=== PATIENT | male | born 1970 | race Caucasian/White ===

== ENCOUNTER 2016-09-25 10:24 | Inpatient (IN) | payer OTHER, MEDICAID ==
[~2016-09-25] VITALS: Ht 177.8 cm; Wt 88.7 kg
[~2016-09-25 10:24] MED LIST: AMOX-291 PO; BISA10SU20; BISM262T27 PO; DIAZ10TA; FAMO20TA7 PO; GABA300C10; HYDR-3138 PO; IBUP200C6; METR250T4 PO; METR500T; METR500T PO; OXYC-302 PO; OXYC5CAP4; PANT40TA3 PO; PARO10TA24 PO; RIVA15TA PO; SUCR1TAB26 PO; TETR500C3 PO; TRAM50TA2 PO; WARF10TA PO
[2016-09-25 11:47] LABS: HEMOGLOBIN 14.7 g/dL (13.7-18.0)
[2016-09-25] MEDS ORDERED: KETOROLAC 30 MG/1 ML ONE (11:51)
[2016-09-25] MEDS ORDERED: NITROGLYCERIN OINT 2%, 1GM TP ONE ×2 (11:52→12:00)
[2016-09-25 11:53] LABS: BLOOD UREA NITROGEN 20 mg/dL (7-18)
[2016-09-25 11:57] LABS: IS PT STATUS REG ER OR PRE ER? YES
[2016-09-25] MEDS ORDERED: KETOROLAC 30 MG/1 ML IM ONE (12:00)
[2016-09-25] MEDS ORDERED: FENTANYL PF 100 MCG/2ML IV ONE (13:30)
[2016-09-25] MEDS ORDERED: FENTANYL PF 100 MCG/2ML ONE (13:49)
[2016-09-25] MEDS ORDERED: SODIUM CHLORIDE FLUSH 10ML SYR IVF ONE (14:00)
[2016-09-25 14:30] VITALS: BP 112/74
[2016-09-25 16:40] VITALS: BP 110/72
[2016-09-25] MEDS ORDERED: ENALAPRILAT 1.25 MG/ML, 2ML IVPush PRN (17:00)
[2016-09-25] MEDS ORDERED: HYDROcodone/APAP 5/325 TABLET PO PRN (17:00)
[2016-09-25] MEDS ORDERED: POLYETHYLENE GLYCOL 17 GM PACKET PO PRN (17:00)
[2016-09-25] MEDS ORDERED: ACETAMINOPHEN 325 MG TABLET PO PRN (17:00)
[2016-09-25] MEDS ORDERED: LABETALOL 5MG/ML, 20ML IV PRN (17:00)
[2016-09-25] MEDS ORDERED: ONDANSETRON 2MG/ML, 2ML IVP PRN (17:00)
[2016-09-25] MEDS ORDERED: BISACODYL 10 MG SUPP PR PRN (17:00)
[2016-09-25] MEDS: NICOTINE 14MG/24 HR PATCH.TD24 TD SCH ×2 (17:00→19:47)
[2016-09-25] MEDS: HYDROmorphone 2 MG/ML, 1ML IVPush PRN ×2 (17:27→21:07)
[2016-09-25] MEDS: ENOXAPARIN 40 MG/0.4 ML SQ SCH (17:28)
[2016-09-25] MEDS ORDERED: NITROGLYCERIN 0.4 MG/SPRAY SL PRN (17:30)
[2016-09-25] MEDS ORDERED: NITROGLYCERIN 0.4 MG BOTTLE (25 TABS) SL PRN (17:30)
[2016-09-25 19:00] VITALS: BP 90/51
[2016-09-26 02:38] VITALS: BP 101/63
[2016-09-26 03:16] VITALS: BP 131/88
[2016-09-26 05:09] LABS: HEMOGLOBIN 13.8 g/dL (13.7-18.0)
[2016-09-26 05:21] LABS: ASPARTATE AMINO TRANSFERASE 18 U/L (15-37); BLOOD UREA NITROGEN 26 mg/dL (7-18)
[2016-09-26 08:46] VITALS: BP 91/63
[2016-09-26] MEDS: HYDROmorphone 2 MG/ML, 1ML IVPush PRN ×2 (10:00→13:25)
[2016-09-26 12:29] VITALS: BP 91/55
[2016-09-26 16:03] LABS: IS PT STATUS REG ER OR PRE ER? NO
[2016-09-26] MEDS: ENOXAPARIN 40 MG/0.4 ML SQ SCH (18:04)
== END 2016-09-26 18:52 | disposition home or self-care (01) | DRG 281 ==
LOC: ED 13:05 → EDIP 13:06 → ED 13:22 → 5SO 14:25
PROVIDERS: ADMIT Internal Medicine; ATTEND Internal Medicine
DX: I21.4 Non-ST elevation (NSTEMI) myocardial infarction (principal); D68.51 Activated protein C resistance; D68.59 Other primary thrombophilia; F17.200 Nicotine dependence, unspecified, uncomplicated; F31.9 Bipolar disorder, unspecified; I10 Essential (primary) hypertension; I73.9 Peripheral vascular disease, unspecified; K44.9 Diaphragmatic hernia without obstruction or gangrene; N31.9 Neuromuscular dysfunction of bladder, unspecified; Z86.19 Personal history of other infectious and parasitic diseases; Z86.711 Personal history of pulmonary embolism; Z86.718 Personal history of other venous thrombosis and embolism; Z89.511 Acquired absence of right leg below knee; Z90.49 Acquired absence of other specified parts of digestive tract; Z90.89 Acquired absence of other organs; Z88.8 Allergy status to other drugs, medicaments and biological substances; Z88.5 Allergy status to narcotic agent; Z88.0 Allergy status to penicillin; Z91.013 Allergy to seafood; Z82.49 Family history of ischemic heart disease and other diseases of the circulatory system; Z84.89 Family history of other specified conditions; Z83.3 Family history of diabetes mellitus
CPT/HCPCS: 36415; 71010; 80048; 80053; 80061; 82040; 83880; 84443; 84484; 85025; 85379; 93005; 93306; 96372; 96374; J1170; J1650; J1885; J3010

== ENCOUNTER 2016-09-30 10:14 | Emergency (ER) | payer MEDICARE, MEDICAID ==
[~2016-09-30] VITALS: Ht 177.8 cm; Wt 92.5 kg
[2016-09-30] MEDS ORDERED: KETOROLAC 30 MG/1 ML IM ONE (11:00)
[2016-09-30] MEDS ORDERED: KETOROLAC 30 MG/1 ML ONE (11:03)
[2016-09-30 11:07] VITALS: BP 120/86
[2016-09-30 11:07] LABS: HEMOGLOBIN 15.2 g/dL (13.7-18.0)
[2016-09-30 11:20] LABS: ASPARTATE AMINO TRANSFERASE 17 U/L (15-37); BLOOD UREA NITROGEN 21 mg/dL (7-18)
== END 2016-09-30 12:06 | disposition home or self-care (01) ==
LOC: ED 11:18
DX: R07.89 Other chest pain (principal); Z88.0 Allergy status to penicillin; Z88.5 Allergy status to narcotic agent; Z88.6 Allergy status to analgesic agent; Z88.8 Allergy status to other drugs, medicaments and biological substances; Z86.718 Personal history of other venous thrombosis and embolism
CPT/HCPCS: 36415; 71010; 80053; 84484; 85025; 85379; 93005; 96372; 99285; J1885

== ENCOUNTER 2017-03-23 00:27 | Emergency (ER) | payer OTHER, MEDICAID ==
[~2017-03-23] VITALS: Ht 175.3 cm; Wt 88.8 kg
[~2017-03-23 00:27] MED LIST changes: -HYDR-3138 PO; +HYDR-3237 PO; +METR250T12 PO; -METR250T4 PO; +OXYC5CAP2; -OXYC5CAP4; -PARO10TA24 PO; +PARO10TA56 PO; -SUCR1TAB26 PO; +SUCR1TAB33 PO
[2017-03-23 00:39] VITALS: BP 136/89
[2017-03-23 01:38] LABS: HEMATOCRIT 40.8 % (39.2-51.8); WHITE BLOOD COUNT 6.2 x10^3/uL (3.4-10)
[2017-03-23 01:50] LABS: BLOOD UREA NITROGEN 24 mg/dL (7-18)
[2017-03-23] MEDS ORDERED: OLAN15TA3 PO (01:50)
[2017-03-23] MEDS ORDERED: ALBU1.25 NEB (01:50)
[2017-03-23] MEDS ORDERED: DIVA500T4 PO (01:50)
[2017-03-23] MEDS ORDERED: ZOLP12.52 PO (01:50)
[2017-03-23] MEDS ORDERED: NICO-487 TD (01:50)
[2017-03-23 02:08] LABS: IS PT STATUS REG ER OR PRE ER? YES
[2017-03-23] MEDS ORDERED: KETOROLAC 30 MG/1 ML IVPush ONE (02:30)
[2017-03-23] MEDS ORDERED: KETOROLAC 30 MG/1 ML ONE (02:30)
[2017-03-23] MEDS ORDERED: OMNIPAQUE 350 MG/ML, 100ML BOTTLE ONE (03:00)
== END 2017-03-23 03:58 | disposition home or self-care (01) ==
LOC: ED 02:18
DX: R07.89 Other chest pain (principal); I10 Essential (primary) hypertension; Z86.711 Personal history of pulmonary embolism
CPT/HCPCS: 36415; 71275; 80048; 82040; 84484; 85025; 93005; 96374; 99285; J1885; Q9967

== ENCOUNTER 2017-04-06 16:32 | Emergency (ER) | payer MEDICARE, MEDICAID ==
[~2017-04-06] VITALS: Ht 175.3 cm; Wt 92.4 kg
[~2017-04-06 16:32] MED LIST changes: +ALBU1.25 NEB; +DIVA500T4 PO; +NICO-487 TD; +OLAN15TA3 PO; +ZOLP12.52 PO
[2017-04-06 16:38] VITALS: BP 143/86
[2017-04-06] MEDS ORDERED: KETOROLAC 30 MG/1 ML ONE (16:52)
[2017-04-06] MEDS ORDERED: KETOROLAC 30 MG/1 ML IM ONE (17:00)
== END 2017-04-06 17:42 | disposition home or self-care (01) ==
LOC: ED 17:36
DX: S43.402A Unspecified sprain of left shoulder joint, initial encounter (principal); I10 Essential (primary) hypertension; F31.9 Bipolar disorder, unspecified; F19.10 Other psychoactive substance abuse, uncomplicated; W01.0XXA Fall on same level from slipping, tripping and stumbling without subsequent striking against object, initial encounter; Y93.89 Activity, other specified; Y92.89 Other specified places as the place of occurrence of the external cause; Y99.8 Other external cause status; Z86.718 Personal history of other venous thrombosis and embolism
CPT/HCPCS: 73030; 96372; 99284; J1885

== ENCOUNTER 2017-06-13 09:31 | Inpatient (IN) | payer OTHER, MEDICAID ==
[2017-06-11 12:40] VITALS: BP 146/93
[~2017-06-13] VITALS: Ht 175.3 cm; Wt 97.9 kg
[~2017-06-13 09:31] MED LIST changes: +BUPIVACAINE/PF 0.5% ONE; +FLUO20TA25 PO; +IBUP-1223 PO; +MECL25TA4 PO; +TRIA340. TD
[2017-06-13] MEDS ORDERED: LACTATED RINGERS 1,000 ML IV SCH (09:52)
[2017-06-13] MEDS ORDERED: FENTANYL PF 100 MCG/2ML ONE ×4 (09:55→13:19)
[2017-06-13] MEDS ORDERED: MIDAZOLAM 1 MG/ML, 2ML ONE (09:55)
[2017-06-13] MEDS ORDERED: ROCURONIUM 10 MG/ML,10ML ONE (09:58)
[2017-06-13] MEDS ORDERED: PROPOFOL 10 MG/ML, 20ML ONE (09:58)
[2017-06-13] MEDS ORDERED: NEOSTIGMINE 1 MG/ML, 10ML ONE (09:59)
[2017-06-13] MEDS ORDERED: CEFAZOLIN 1,000 MG ONE ×2 (10:03)
[2017-06-13] MEDS ORDERED: SODIUM CHLORIDE 0.9% PF 10ML ONE (10:03)
[2017-06-13] MEDS ORDERED: LIDOCAINE 1%, 2ML ONE (10:17)
[2017-06-13] MEDS ORDERED: SUCCINYLCHOLINE 20 MG/ML, 10ML ONE (10:51)
[2017-06-13] MEDS ORDERED: GLYCOPYRROLATE 0.2MG/1ML, 5ML ONE (11:06)
[2017-06-13] MEDS ORDERED: FENTANYL PF 100 MCG/2ML IV PRN (11:30)
[2017-06-13] MEDS ORDERED: hydrALAzine 20 MG/ML, 1ML IV PRN ×2 (11:30→13:00)
[2017-06-13] MEDS ORDERED: MEPERIDINE/PF 25MG/0.5ML IVPush PRN (11:30)
[2017-06-13] MEDS ORDERED: ONDANSETRON 2MG/ML, 2ML IVPush PRN ×2 (11:30→13:00)
[2017-06-13] MEDS ORDERED: LABETALOL 5MG/ML, 20ML IV PRN (11:30)
[2017-06-13] MEDS ORDERED: PROMETHAZINE 25 MG/ML, 1ML IV PRN (11:30)
[2017-06-13] MEDS ORDERED: ALBUTEROL SULFATE 2.5 MG/3 ML NPPB PRN ×2 (11:30→15:30)
[2017-06-13] MEDS ORDERED: OXYcodone 5 MG/5 ML ORAL.SOL UDC PO PRN (11:30)
[2017-06-13] MEDS ORDERED: ACETAMINOPHEN 325 MG TABLET PO PRN (11:30)
[2017-06-13] MEDS ORDERED: DIPHENHYDRAMINE 50 MG/ML, 1ML IV PRN (13:00)
[2017-06-13] MEDS ORDERED: PROMETHAZINE 12.5 MG SUPP PR PRN (13:00)
[2017-06-13] MEDS ORDERED: ENALAPRILAT 1.25 MG/ML, 2ML IV PRN (13:00)
[2017-06-13] MEDS ORDERED: PROMETHAZINE 25 MG/ML, 1ML IM PRN (13:00)
[2017-06-13] MEDS: HYDROcodone/APAP 7.5-325MG/15ML UDC PO PRN ×4 (13:40→22:08)
[2017-06-13] MEDS: HYDROmorphone 1 MG/ML, 1ML IV PRN ×4 (13:45→15:32)
[2017-06-13] MEDS ORDERED: KETOROLAC 30 MG/1 ML ONE (13:57)
[2017-06-13] MEDS ORDERED: HYDROcodone/APAP 7.5-325MG/15ML UDC ONE (13:57)
[2017-06-13] MEDS ORDERED: HYDROmorphone 2 MG/ML, 1ML ONE ×2 (13:57→15:28)
[2017-06-13] MEDS: KETOROLAC 30 MG/1 ML IV PRN ×2 (13:59→20:57)
[2017-06-13] MEDS ORDERED: PROMETHAZINE 25 MG/ML, 1ML ONE (14:00)
[2017-06-13] MEDS: LACTATED RINGERS 1,000 ML IV SCH ×2 (14:10→21:12)
[2017-06-13] MEDS ORDERED: TRIAMCINOLONE CRM 0.1%, 15GM TP PRN (15:30)
[2017-06-13 20:12] VITALS: BP 117/80
[2017-06-13] MEDS: FAMOTIDINE 20 MG/2 ML IV SCH (20:57)
[2017-06-13] MEDS: CEFAZOLIN PMX 2GM/50ML 50 ML IVPB SCH (21:11)
[2017-06-13] MEDS: DIVALPROEX 500 MG TAB.ER.24H PO SCH (21:12)
[2017-06-13] MEDS: LORazepam 2 MG/ML, 1ML IV PRN (23:51)
[2017-06-14 00:37] VITALS: BP 105/69
[2017-06-14] MEDS: HYDROcodone/APAP 7.5-325MG/15ML UDC PO PRN ×5 (02:49→21:07)
[2017-06-14] MEDS: CEFAZOLIN PMX 2GM/50ML 50 ML IVPB SCH (05:22)
[2017-06-14] MEDS: LACTATED RINGERS 1,000 ML IV SCH ×3 (05:22→20:44)
[2017-06-14 06:58] VITALS: BP 101/68
[2017-06-14] MEDS: LORazepam 2 MG/ML, 1ML IV PRN (07:34)
[2017-06-14] MEDS: FAMOTIDINE 20 MG/2 ML IV SCH ×2 (08:10→19:59)
[2017-06-14] MEDS: ENOXAPARIN 40 MG/0.4 ML SQ SCH (08:10)
[2017-06-14] MEDS ORDERED: KETOROLAC 30 MG/1 ML IM PRN (09:30)
[2017-06-14] MEDS: KETOROLAC 30 MG/1 ML IV PRN ×2 (10:19→20:00)
[2017-06-14 13:45] VITALS: BP 133/89
[2017-06-14] MEDS ORDERED: HYDROmorphone 2 MG/ML, 1ML ONE ×2 (14:46→23:55)
[2017-06-14 19:41] VITALS: BP 111/79
[2017-06-14] MEDS: DIVALPROEX 500 MG TAB.ER.24H PO SCH (21:07)
[2017-06-14] MEDS: HYDROmorphone 1 MG/ML, 1ML IV PRN (23:58)
[2017-06-15] MEDS: HYDROcodone/APAP 7.5-325MG/15ML UDC PO PRN ×3 (01:02→09:49)
[2017-06-15 04:41] VITALS: BP 128/71
[2017-06-15] MEDS: LACTATED RINGERS 1,000 ML IV SCH (04:44)
[2017-06-15 07:30] VITALS: BP 115/75
[2017-06-15] MEDS: KETOROLAC 30 MG/1 ML IV PRN (07:44)
[2017-06-15] MEDS: ENOXAPARIN 40 MG/0.4 ML SQ SCH (07:44)
[2017-06-15] MEDS: FAMOTIDINE 20 MG/2 ML IV SCH (07:44)
[2017-06-15 12:04] VITALS: BP 159/88
== END 2017-06-15 12:46 | disposition home or self-care (01) | DRG 328 ==
LOC: ORIP 09:31 → 4NOR 14:48
PROVIDERS: ADMIT Thoracic Surgery (Cardiothoracic Vascular Surgery); ATTEND Thoracic Surgery (Cardiothoracic Vascular Surgery)
PROC: 0DV44ZZ Restriction of Esophagogastric Junction, Percutaneous Endoscopic Approach (ICD-10-PCS; 2017-06-13)
PROC: 0BUT4JZ Supplement Diaphragm with Synthetic Substitute, Percutaneous Endoscopic Approach (ICD-10-PCS; principal; 2017-06-13 11:30)
DX: K44.9 Diaphragmatic hernia without obstruction or gangrene (principal); R13.10 Dysphagia, unspecified; G89.29 Other chronic pain; F17.210 Nicotine dependence, cigarettes, uncomplicated; F32.9 Major depressive disorder, single episode, unspecified; Z89.519 Acquired absence of unspecified leg below knee; Z86.718 Personal history of other venous thrombosis and embolism; Z86.711 Personal history of pulmonary embolism
CPT/HCPCS: J0690; J1170; J1650; J1885; J2250; J2405; J2550; J2704; J2710; J3010; J3490; J0330; J2060; J7120; S0028

== ENCOUNTER 2017-08-09 09:14 | Emergency (ER) | payer MEDICARE, MEDICAID ==
[~2017-08-09] VITALS: Ht 175.3 cm; Wt 97.7 kg
[~2017-08-09 09:14] MED LIST changes: -BUPIVACAINE/PF 0.5% ONE
[2017-08-09] MEDS ORDERED: SODIUM CHLORIDE 0.9% 1,000 ML IV ONE (10:52)
[2017-08-09] MEDS ORDERED: ONDANSETRON 2MG/ML, 2ML IVPush ONE (11:00)
[2017-08-09] MEDS ORDERED: SODIUM CHLORIDE 0.9% 1,000ML IVBOLUS ONE (11:00)
[2017-08-09] MEDS ORDERED: FAMOTIDINE 20 MG/2 ML IVP ONE (11:00)
[2017-08-09 11:18] LABS: BASOPHILS # (AUTO) 0.04 x10^3/uL (0-0.1); BASOPHILS % (AUTO) 1 % (0-1); EOSINOPHILS % (AUTO) 5 % (1-7); LYMPHOCYTES # (AUTO) 1.39 x10^3/uL (1-3.4); LYMPHOCYTES % (AUTO) 23 % (22-44); MD NO; MEAN CORPUSCULAR HEMOGLOBIN 31.7 pg (27.5-34.5); MEAN CORPUSCULAR HGB CONC 34.3 g/dL (33.2-36.2); MEAN CORPUSCULAR VOLUME 92.2 fL (81-97); MEAN PLATELET VOLUME 7.6 fL (7.4-10.4); MONOCYTES # (AUTO) 0.42 x10^3/uL (0.2-0.8); MONOCYTES % (AUTO) 7 % (2-9); NEUTROPHILS # (AUTO) 3.94 x10^3/uL (1.8-6.8); NEUTROPHILS % (AUTO) 65 % (42-75); PLATELET COUNT 333 x10^3/uL (130-400); RED BLOOD COUNT 4.51 x10^6/uL (4.38-5.82); RED CELL DISTRIBUTION WIDTH 14.5 % (9.4-14.8)
[2017-08-09] MEDS ORDERED: ONDANSETRON 2MG/ML, 2ML ONE (11:19)
[2017-08-09] MEDS ORDERED: HYDROmorphone 2 MG/ML, 1ML ONE ×2 (11:19→12:44)
[2017-08-09] MEDS ORDERED: FAMOTIDINE 20 MG/2 ML ONE (11:20)
[2017-08-09] MEDS: HYDROmorphone 1 MG/ML, 1ML IVPush PRN ×2 (11:24→12:21)
[2017-08-09 11:28] VITALS: BP 118/79
[2017-08-09 11:30] LABS: ALANINE AMINOTRANSFERASE 46 U/L (12-78); ALBUMIN 3.3 g/dL (3.4-5.0); ANION GAP 8 mmol/L (5-15); CALCIUM 8.3 mg/dL (8.5-10.1); CHLORIDE 110 mmol/L (98-107); CREATININE 0.83 mg/dL (0.7-1.3)
[2017-08-09 11:32] LABS: ALKALINE PHOSPHATASE 64 U/L (45-117); BILIRUBIN,TOTAL 0.3 mg/dL (0.2-1.0); TOTAL PROTEIN 7.4 g/dL (6.4-8.2)
[2017-08-09 11:49] LABS: MICROSCOPIC INDICATED
[2017-08-09 11:50] LABS: CULTURE INDICATED? YES
[2017-08-09] MEDS ORDERED: OMNIPAQUE 350 MG/ML, 100ML BOTTLE ONE (12:21)
[2017-08-09] MEDS ORDERED: CEFTRIAXONE PMX 1GM/50ML 50 ML ONE (12:44)
[2017-08-09] MEDS ORDERED: CEFTRIAXONE PMX 1GM/50ML 50 ML IV ONE (13:00)
== END 2017-08-09 12:57 | disposition home or self-care (01) ==
LOC: ED 12:12
DX: N39.0 Urinary tract infection, site not specified (principal); I10 Essential (primary) hypertension; Z86.711 Personal history of pulmonary embolism
CPT/HCPCS: 36415; 74177; 80053; 81001; 83690; 85025; 87077; 87086; 87186; 96361; 96374; 96375; 96376; 99285; G0260; J0696; J1170; J2405; J7030; Q9967; S0028

== ENCOUNTER 2017-12-19 07:36 | Day surgery (SDC) | payer MEDICARE, MEDICAID ==
[~2017-12-19] VITALS: Ht 170.2 cm; Wt 100.3 kg
[~2017-12-19 07:36] MED LIST changes: +ALBU8.5H8 INH; +ARIP10TA33 PO; +DIVA-68 PO; +LURA40TA PO; +MIRT15TA4 PO; +NITR50CA PO; +OLAN10TA9 PO; +OXYC-432 PO
[2017-12-19] MEDS ORDERED: LACTATED RINGERS 1,000 ML IV SCH (08:43)
[2017-12-19 08:44] VITALS: BP 128/87
[2017-12-19] MEDS ORDERED: FENTANYL PF 100 MCG/2ML ONE ×2 (10:29→13:20)
[2017-12-19] MEDS ORDERED: PROPOFOL 10 MG/ML, 20ML ONE (11:45)
[2017-12-19] MEDS ORDERED: ONDANSETRON 2MG/ML, 2ML ONE (11:45)
[2017-12-19] MEDS ORDERED: SUCCINYLCHOLINE 20 MG/ML, 10ML ONE (11:45)
[2017-12-19] MEDS ORDERED: MIDAZOLAM 1 MG/ML, 2ML ONE (11:53)
[2017-12-19] MEDS ORDERED: CIPROFLOXACIN 400MG/200ML PMX ONE (11:57)
[2017-12-19] MEDS ORDERED: OXYcodone 5 MG/5 ML ORAL.SOL UDC ONE ×2 (13:20→13:24)
[2017-12-19] MEDS ORDERED: ACETAMINOPHEN 650 MG/20.3 ML UDC ONE (13:20)
[2017-12-19] MEDS ORDERED: ACETAMINOPHEN 325 MG TABLET PO PRN (13:30)
[2017-12-19] MEDS ORDERED: OXYcodone 5 MG/5 ML ORAL.SOL UDC PO PRN (13:30)
[2017-12-19] MEDS ORDERED: FENTANYL PF 100 MCG/2ML IV PRN (13:30)
== END 2017-12-19 14:30 ==
LOC: OUT 07:36
PROVIDERS: ATTEND Urology
DX: N32.9 Bladder disorder, unspecified (principal); Z88.6 Allergy status to analgesic agent; Z88.5 Allergy status to narcotic agent; Z88.0 Allergy status to penicillin; Z88.8 Allergy status to other drugs, medicaments and biological substances
CPT/HCPCS: 52204; 88307; J0330; J0744; J2405; J2704; J3010; J2250

== ENCOUNTER → 2018-03-15 | Outpatient (CLI) | payer MEDICARE, MEDICAID ==
[~2018-03-15] MED LIST changes: +DIVA-61 PO; -DIVA-68 PO; +TETR-17 PO; -TETR500C3 PO
== END | disposition home or self-care (01) ==
LOC: CFH 09:02
PROVIDERS: ATTEND Physical Medicine & Rehabilitation Pain Medicine
DX: M51.24 Other intervertebral disc displacement, thoracic region (principal); M47.814 Spondylosis without myelopathy or radiculopathy, thoracic region; M47.816 Spondylosis without myelopathy or radiculopathy, lumbar region; Z86.718 Personal history of other venous thrombosis and embolism; F17.200 Nicotine dependence, unspecified, uncomplicated; Z85.830 Personal history of malignant neoplasm of bone
CPT/HCPCS: 72146; 72148

== ENCOUNTER 2018-04-21 11:27 | Observation (INO) | payer MEDICARE, MEDICAID ==
[~2018-04-21] VITALS: Ht 175.3 cm; Wt 93.7 kg
[2018-04-21] MEDS ORDERED: ASPIRIN 81 MG TABLET CHEW ONE (12:25)
[2018-04-21] MEDS ORDERED: MAALOX/HYOSCYAMINE/LIDOCAINE 45 ML BTL ONE (12:25)
[2018-04-21] MEDS ORDERED: ASPIRIN 81 MG TABLET CHEW PO ONE (12:30)
[2018-04-21] MEDS ORDERED: MAALOX/HYOSCYAMINE/LIDOCAINE 45 ML BTL PO ONE (12:30)
[2018-04-21] MEDS ORDERED: SODIUM CHLORIDE FLUSH 10ML SYR IVF ONE (12:30)
[2018-04-21 12:39] LABS: BASOPHILS # (AUTO) 0.06 x10^3/uL (0-0.1); BASOPHILS % (AUTO) 1 % (0-1); EOSINOPHILS # (AUTO) 0.13 x10^3/uL (0-0.4); EOSINOPHILS % (AUTO) 2 % (1-7); LYMPHOCYTES # (AUTO) 1.65 x10^3/uL (1-3.4); LYMPHOCYTES % (AUTO) 28 % (22-44); MD NO; MEAN CORPUSCULAR HEMOGLOBIN 31.2 pg (27.5-34.5); MEAN CORPUSCULAR HGB CONC 33.7 g/dL (33.2-36.2); MEAN CORPUSCULAR VOLUME 92.6 fL (81-97); MEAN PLATELET VOLUME 7.5 fL (7.4-10.4); MONOCYTES # (AUTO) 0.26 x10^3/uL (0.2-0.8); MONOCYTES % (AUTO) 4 % (2-9); NEUTROPHILS % (AUTO) 65 % (42-75); PLATELET COUNT 292 x10^3/uL (130-400); RED BLOOD COUNT 4.82 x10^6/uL (4.38-5.82); RED CELL DISTRIBUTION WIDTH 14.7 % (9.4-14.8)
[2018-04-21 12:51] LABS: ALANINE AMINOTRANSFERASE 32 U/L (12-78); ALBUMIN 3.6 g/dL (3.4-5.0); ANION GAP 9 mmol/L (5-15); CALCIUM 9.3 mg/dL (8.5-10.1); CHLORIDE 106 mmol/L (98-107); CREATININE 1.31 mg/dL (0.7-1.3)
[2018-04-21 12:55] LABS: ALKALINE PHOSPHATASE 78 U/L (45-117); BILIRUBIN,TOTAL 0.5 mg/dL (0.2-1.0); TOTAL PROTEIN 7.6 g/dL (6.4-8.2); TROPONIN I < 0.015 ng/mL (0.000-0.045)
[2018-04-21] MEDS ORDERED: NITROGLYCERIN SINGLE TAB 0.4 MG SL PRN (14:00)
[2018-04-21] MEDS ORDERED: ESCI10TA PO (14:00)
[2018-04-21] MEDS ORDERED: BUPR150T73 PO (14:00)
[2018-04-21] MEDS ORDERED: LURA120T PO (14:00)
[2018-04-21] MEDS ORDERED: TRAZ-137 PO (14:00)
[2018-04-21] MEDS ORDERED: FAMOTIDINE 20 MG/2 ML IVPush ONE (14:00)
[2018-04-21] MEDS ORDERED: ZOLP12.54 PO (14:00)
[2018-04-21] MEDS ORDERED: NITROGLYCERIN SINGLE TAB 0.4 MG SL ONE (14:10)
[2018-04-21] MEDS ORDERED: FAMOTIDINE 20 MG/2 ML ONE (14:11)
[2018-04-21] MEDS ORDERED: hydrALAzine 20 MG/ML, 1ML IVPush PRN (14:30)
[2018-04-21] MEDS ORDERED: HYDROmorphone 2 MG/ML, 1ML IVPush PRN (14:30)
[2018-04-21] MEDS: SODIUM CHLORIDE 0.9% 1,000 ML IV SCH ×2 (16:07→16:52)
[2018-04-21] MEDS: ENOXAPARIN 40 MG/0.4 ML SQ SCH (16:08)
[2018-04-21] MEDS: NICOTINE 21 MG/24 HR PATCH.TD24 TD SCH (16:08)
[2018-04-21 19:06] VITALS: BP 108/71
[2018-04-21] MEDS: PANTOPROZOLE 40MG TABLET PO SCH (20:40)
[2018-04-21] MEDS: ACETAMINOPHEN 325 MG TABLET PO PRN (21:48)
[2018-04-21 22:28] LABS: TROPONIN I < 0.015 ng/mL (0.000-0.045)
[2018-04-22 00:13] VITALS: BP 124/82
[2018-04-22] MEDS ORDERED: TRAZODONE 100MG TABLET PO ONE (00:30)
[2018-04-22 04:52] LABS: ANION GAP 8 mmol/L (5-15); CALCIUM 8.9 mg/dL (8.5-10.1); CHLORIDE 108 mmol/L (98-107)
[2018-04-22 04:59] LABS: CREATININE 1.29 mg/dL (0.7-1.3); TROPONIN I < 0.015 ng/mL (0.000-0.045)
[2018-04-22] MEDS: SODIUM CHLORIDE 0.9% 1,000 ML IV SCH (06:07)
[2018-04-22] MEDS ORDERED: REGADENOSON 0.4 MG/5 ML SYRINGE ONE (08:29)
[2018-04-22] MEDS: PANTOPROZOLE 40MG TABLET PO SCH (10:35)
[2018-04-22 11:00] VITALS: BP 124/83
[2018-04-22 14:10] VITALS: BP 122/78
[2018-04-22] MEDS: ENOXAPARIN 40 MG/0.4 ML SQ SCH ×2 (14:30→16:01)
[2018-04-22] MEDS ORDERED: OMNIPAQUE 350 MG/ML, 100ML BOTTLE ONE (15:42)
[2018-04-22] MEDS: NICOTINE 21 MG/24 HR PATCH.TD24 TD SCH (15:59)
[2018-04-22] MEDS: ACETAMINOPHEN 325 MG TABLET PO PRN (16:00)
[2018-04-22] MEDS ORDERED: OMEP-110 PO (16:07)
== END 2018-04-22 17:37 | disposition home or self-care (01) ==
LOC: ED 12:34 → INTOOBSV 13:58 → EDIP 13:58 → 5SO 15:11
PROVIDERS: ADMIT Internal Medicine; ATTEND Internal Medicine
DX: R07.89 Other chest pain (principal); N17.0 Acute kidney failure with tubular necrosis; N31.9 Neuromuscular dysfunction of bladder, unspecified; K44.9 Diaphragmatic hernia without obstruction or gangrene; K21.9 Gastro-esophageal reflux disease without esophagitis; D68.51 Activated protein C resistance; F17.200 Nicotine dependence, unspecified, uncomplicated; F31.9 Bipolar disorder, unspecified; I10 Essential (primary) hypertension; I70.201 Unspecified atherosclerosis of native arteries of extremities, right leg; Z86.19 Personal history of other infectious and parasitic diseases; Z86.711 Personal history of pulmonary embolism; Z86.718 Personal history of other venous thrombosis and embolism; Z89.511 Acquired absence of right leg below knee; Z90.49 Acquired absence of other specified parts of digestive tract; Z92.21 Personal history of antineoplastic chemotherapy
CPT/HCPCS: 36415; 71045; 71275; 78452; 80048; 80053; 83690; 84484; 85025; 85379; 93005; 93017; 96372; 96374; 99285; A9502; C9898; G0378; J1650; J2785; J7030; Q9967; S0028

== ENCOUNTER → 2018-08-08 | Outpatient (CLI) | payer MEDICARE, MEDICAID ==
[~2018-08-08] MED LIST changes: +BUPR150T73 PO; +ESCI10TA PO; +LURA120T PO; -METR250T12 PO; +METR250T18 PO; +OMEP-110 PO; +TRAZ-137 PO; +ZOLP12.54 PO
== END | disposition home or self-care (01) ==
LOC: CVU 08:39
PROVIDERS: ATTEND Surgery
DX: I73.9 Peripheral vascular disease, unspecified (principal); I65.23 Occlusion and stenosis of bilateral carotid arteries; F31.9 Bipolar disorder, unspecified; F17.200 Nicotine dependence, unspecified, uncomplicated; Z89.511 Acquired absence of right leg below knee; Z85.29 Personal history of malignant neoplasm of other respiratory and intrathoracic organs; Z88.0 Allergy status to penicillin; Z88.5 Allergy status to narcotic agent
CPT/HCPCS: 93880; 93925

== ENCOUNTER 2018-11-17 16:27 | Inpatient (IN) | payer MEDICARE, MEDICAID ==
[~2018-11-17] VITALS: Ht 170.2 cm; Wt 78.9 kg
[~2018-11-17 16:27] MED LIST changes: -BISM262T27 PO; +[UNRECOGNIZED DRUG - CODE] PO
--- NOTE | 2018-11-17 16:45 | NUR ---
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 PT HAS BLE IVC FILTERS IN PLACE, NOT ON BLOOD THINNERS. PA AT BEDSIDE
--- NOTE | 2018-11-17 17:30 | NUR ---
PT HAS BILAT LE DVT'S, INITIATE HEPARIN GTT
[2018-11-17 17:36] LABS: ANION GAP 7 mmol/L (5-15); BASOPHILS # (AUTO) 0.03 x10^3/uL (0-0.1); BASOPHILS % (AUTO) 0 % (0-1); CALCIUM 9.6 mg/dL (8.5-10.1); CHLORIDE 109 mmol/L (98-107); EOSINOPHILS % (AUTO) 1 % (1-7); LYMPHOCYTES # (AUTO) 2.43 x10^3/uL (1-3.4); LYMPHOCYTES % (AUTO) 25 % (22-44); MD NO; MEAN CORPUSCULAR HEMOGLOBIN 32.1 pg (27.5-34.5); MEAN CORPUSCULAR HGB CONC 33.1 g/dL (33.2-36.2); MEAN CORPUSCULAR VOLUME 97.1 fL (81-97); MEAN PLATELET VOLUME 8.3 fL (7.4-10.4); MONOCYTES # (AUTO) 0.39 x10^3/uL (0.2-0.8); MONOCYTES % (AUTO) 4 % (2-9); NEUTROPHILS # (AUTO) 6.71 x10^3/uL (1.8-6.8); NEUTROPHILS % (AUTO) 70 % (42-75); PLATELET COUNT 290 x10^3/uL (130-400); RED BLOOD COUNT 4.91 x10^6/uL (4.38-5.82)
[2018-11-17 17:41] LABS: ALANINE AMINOTRANSFERASE 36 U/L (12-78); ALKALINE PHOSPHATASE 69 U/L (45-117); BILIRUBIN,TOTAL 0.3 mg/dL (0.2-1.0); CREATININE 1.51 mg/dL (0.7-1.3)
[2018-11-17 17:53] LABS: INTERNATIONAL NORMALIZED RATIO 0.96 (0.93-1.1); PROTHROMBIN TIME 10.1 Seconds (9.6-11.5)
--- NOTE | 2018-11-17 17:56 | NUR ---
REQUESTED RECORDS FROM [facility]
[2018-11-17] MEDS ORDERED: HYDROcodone/APAP 5/325 TABLET ONE ×2 (18:16→20:34)
[2018-11-17] MEDS ORDERED: HYDROcodone/APAP 5/325 TABLET PO ONE ×2 (18:30→20:30)
[2018-11-17] MEDS ORDERED: HEPARIN 5,000 UNITS/ML, 1ML IV ONE (18:30)
[2018-11-17] MEDS ORDERED: HEPARIN 25,000 UNITS/500ML PMX 500 ML IV PRN (18:30)
--- NOTE | 2018-11-17 18:33 | NUR ---
ANTI TXA IN PROCESS, UNABLE TO ESTABLISH IV ACCESS AT THIS TIME AFTER 6 ATTEMPTS, MD AND PRINCIPAL MILITARY ANALYST NOTIFIED. PRINCIPAL MILITARY ANALYST TO OBTAIN RN TO DO IJ OR US IV
[2018-11-17] MEDS ORDERED: HEPARIN 5,000 UNITS/ML, 1ML ONE (18:54)
--- NOTE | 2018-11-17 18:58 | NUR ---
IV ACCESS ESTABLISHED, HEPARIN PROTOCOL INITIATED
[2018-11-17] MEDS ORDERED: HEPARIN 25,000 UNITS/500ML PMX 500 ML ONE (19:02)
--- NOTE | 2018-11-17 19:09 | NUR ---
CALLED PHARMACY TO VERIFY HEPARIN GTT WEIGHT RANGE, PT IS 82KG HOWEVER THEY HAVE HIM IN THE 61-70KG WEIGHT RANGE DUE TO HIS HEIGHT, PER PHARMACIST THIS IS OK. INITIATE HEPARIN GTT IN 61-70KG RANGE
--- NOTE | 2018-11-17 19:55 | NUR ---
PT STATES PAIN NOT CONTROLLED WITH NORCO, ADDITIONAL PAIN MEDS GIVEN PER MD
--- NOTE | 2018-11-17 21:05 | NUR ---
TRIED TO CALL REPORT, UC STATED SHE CANNOT LOCATE RN, RN WILL CALL BACK
--- NOTE | 2018-11-17 21:15 | NUR ---
REPORT TO HANK WILSON
[2018-11-17] MEDS ORDERED: DOCUSATE 100 MG CAPSULE PO PRN (22:30)
[2018-11-17] MEDS ORDERED: ONDANSETRON ODT 4 MG PO PRN (22:30)
[2018-11-17] MEDS ORDERED: hydrALAzine 20 MG/ML, 1ML IVPush PRN (22:30)
[2018-11-17] MEDS ORDERED: LIDODERM 5% PATCH TD PRN (22:30)
[2018-11-17] MEDS ORDERED: NICOTINE GUM 4 MG BC PRN (22:30)
[2018-11-17 22:56] VITALS: BP 114/76
[2018-11-18] MEDS ORDERED: HEPARIN 25,000 UNITS/500ML PMX 500 ML IV PRN
[2018-11-18 01:33] LABS: BASOPHILS # (AUTO) 0.04 x10^3/uL (0-0.1); BASOPHILS % (AUTO) 1 % (0-1); EOSINOPHILS # (AUTO) 0.13 x10^3/uL (0-0.4); EOSINOPHILS % (AUTO) 2 % (1-7); LYMPHOCYTES # (AUTO) 3.34 x10^3/uL (1-3.4); LYMPHOCYTES % (AUTO) 46 % (22-44); MD NO; MEAN CORPUSCULAR HEMOGLOBIN 32.2 pg (27.5-34.5); MEAN CORPUSCULAR HGB CONC 33.3 g/dL (33.2-36.2); MEAN CORPUSCULAR VOLUME 96.9 fL (81-97); MEAN PLATELET VOLUME 7.6 fL (7.4-10.4); MONOCYTES # (AUTO) 0.37 x10^3/uL (0.2-0.8); MONOCYTES % (AUTO) 5 % (2-9); NEUTROPHILS % (AUTO) 47 % (42-75); PLATELET COUNT 268 x10^3/uL (130-400); RED CELL DISTRIBUTION WIDTH 13.9 % (9.4-14.8)
[2018-11-18 01:43] LABS: ANION GAP 9 mmol/L (5-15); CALCIUM 8.8 mg/dL (8.5-10.1); CHLORIDE 108 mmol/L (98-107); CREATININE 1.28 mg/dL (0.7-1.3)
[2018-11-18] MEDS: HEPARIN 5,000 UNITS/ML, 1ML IV PRN ×2 (02:01→14:30)
[2018-11-18] MEDS: OXYcodone/APAP 10/325MG TABLET PO PRN ×3 (02:05→15:09)
[2018-11-18] MEDS ORDERED: OXYcodone/APAP 10/325MG TABLET PO PRN (02:30)
[2018-11-18 06:00] VITALS: BP 118/78
[2018-11-18 15:10] VITALS: BP 111/76
[2018-11-18 18:48] VITALS: BP 99/64
[2018-11-18] MEDS: OXYcodone/APAP 5/325MG TABLET PO PRN (22:09)
[2018-11-19 01:33] VITALS: BP 99/64
[2018-11-19 03:29] LABS: BASOPHILS # (AUTO) 0.02 x10^3/uL (0-0.1); BASOPHILS % (AUTO) 0 % (0-1); EOSINOPHILS # (AUTO) 0.17 x10^3/uL (0-0.4); EOSINOPHILS % (AUTO) 2 % (1-7); LYMPHOCYTES % (AUTO) 43 % (22-44); MD NO; MEAN CORPUSCULAR HEMOGLOBIN 32.4 pg (27.5-34.5); MEAN CORPUSCULAR HGB CONC 32.9 g/dL (33.2-36.2); MEAN CORPUSCULAR VOLUME 98.4 fL (81-97); MEAN PLATELET VOLUME 8.5 fL (7.4-10.4); MONOCYTES # (AUTO) 0.44 x10^3/uL (0.2-0.8); MONOCYTES % (AUTO) 6 % (2-9); NEUTROPHILS # (AUTO) 3.45 x10^3/uL (1.8-6.8); NEUTROPHILS % (AUTO) 48 % (42-75); PLATELET COUNT 240 x10^3/uL (130-400); RED BLOOD COUNT 4.79 x10^6/uL (4.38-5.82); RED CELL DISTRIBUTION WIDTH 13.8 % (9.4-14.8)
[2018-11-19 03:40] LABS: ALANINE AMINOTRANSFERASE 38 U/L (12-78); ALBUMIN 3.4 g/dL (3.4-5.0); ANION GAP 6 mmol/L (5-15); CHLORIDE 107 mmol/L (98-107); CREATININE 0.98 mg/dL (0.7-1.3)
[2018-11-19 03:42] LABS: ALKALINE PHOSPHATASE 60 U/L (45-117); BILIRUBIN,TOTAL 0.2 mg/dL (0.2-1.0)
[2018-11-19] MEDS: OXYcodone/APAP 5/325MG TABLET PO PRN ×2 (07:58→20:42)
[2018-11-19] MEDS ORDERED: APIX5TAB PO ×3 (09:35→10:53)
[2018-11-19] MEDS: APIXABAN 5 MG TABLET PO SCH ×2 (10:28→20:42)
[2018-11-19 13:30] VITALS: BP 117/82
[2018-11-19 14:47] VITALS: BP 114/74
[2018-11-19 14:48] VITALS: BP 125/86
[2018-11-19 14:51] VITALS: BP 118/86
[2018-11-19] MEDS: SODIUM CHLORIDE 0.45% 1,000 ML IV SCH (18:31)
[2018-11-19 18:40] VITALS: BP 119/82
[2018-11-20] MEDS: OXYcodone/APAP 5/325MG TABLET PO PRN ×3 (00:45→15:44)
[2018-11-20] MEDS ORDERED: TEMAZEPAM 15 MG CAPSULE PO ONE (01:00)
[2018-11-20 01:26] VITALS: BP 129/81
[2018-11-20 05:44] LABS: ALBUMIN 3.8 g/dL (3.4-5.0); ANION GAP 5 mmol/L (5-15); CALCIUM 9.4 mg/dL (8.5-10.1); CHLORIDE 108 mmol/L (98-107)
[2018-11-20 05:48] LABS: ALANINE AMINOTRANSFERASE 46 U/L (12-78); ALKALINE PHOSPHATASE 65 U/L (45-117); BILIRUBIN,TOTAL 0.6 mg/dL (0.2-1.0); CREATININE 0.95 mg/dL (0.7-1.3); TOTAL PROTEIN 7.7 g/dL (6.4-8.2)
[2018-11-20 05:54] LABS: BASOPHILS # (AUTO) 0.03 x10^3/uL (0-0.1); BASOPHILS % (AUTO) 0 % (0-1); EOSINOPHILS # (AUTO) 0.16 x10^3/uL (0-0.4); EOSINOPHILS % (AUTO) 3 % (1-7); LYMPHOCYTES % (AUTO) 39 % (22-44); MD NO; MEAN CORPUSCULAR HEMOGLOBIN 32.6 pg (27.5-34.5); MEAN CORPUSCULAR HGB CONC 33.9 g/dL (33.2-36.2); MEAN CORPUSCULAR VOLUME 96.1 fL (81-97); MEAN PLATELET VOLUME 8.2 fL (7.4-10.4); MONOCYTES % (AUTO) 6 % (2-9); NEUTROPHILS # (AUTO) 3.51 x10^3/uL (1.8-6.8); NEUTROPHILS % (AUTO) 52 % (42-75); PLATELET COUNT 296 x10^3/uL (130-400); RED BLOOD COUNT 4.76 x10^6/uL (4.38-5.82); RED CELL DISTRIBUTION WIDTH 13.9 % (9.4-14.8)
[2018-11-20 06:25] VITALS: BP 108/71
[2018-11-20 08:47] VITALS: BP 106/73
[2018-11-20 08:48] VITALS: BP 120/80
[2018-11-20 08:49] VITALS: BP 109/80
[2018-11-20] MEDS: SODIUM CHLORIDE 0.45% 1,000 ML IV SCH ×2 (10:01→15:44)
[2018-11-20] MEDS: APIXABAN 5 MG TABLET PO SCH (10:01)
[2018-11-20 14:25] VITALS: BP 112/78
[2018-11-20] MEDS ORDERED: MECLIZINE CHEWABLE 25 MG TAB ONE (17:21)
[2018-11-20] MEDS ORDERED: MECLIZINE CHEWABLE 25 MG TAB PO ONE (17:30)
[2018-11-20] MEDS ORDERED: MECLIZINE CHEWABLE 25 MG TAB PO SCH (17:30)
[2018-11-20] MEDS ORDERED: MECLIZINE CHEWABLE 25 MG TAB PO PRN (17:30)
[2018-11-20] MEDS ORDERED: MECL25TA4 PO (17:50)
[2018-11-26] MEDS ORDERED: APIXABAN 5 MG TABLET PO SCH (09:00)
== END 2018-11-20 18:11 | disposition home or self-care (01) | DRG 299 ==
LOC: ED 17:32 → EDIP 18:58 → 3NE 21:40 → 4WST 11-19 20:41
PROVIDERS: ADMIT Family Medicine; ATTEND Family Medicine
DX: I82.413 Acute embolism and thrombosis of femoral vein, bilateral (principal); N17.0 Acute kidney failure with tubular necrosis; D68.51 Activated protein C resistance; F17.213 Nicotine dependence, cigarettes, with withdrawal; F31.9 Bipolar disorder, unspecified; G54.6 Phantom limb syndrome with pain; G89.29 Other chronic pain; I10 Essential (primary) hypertension; I70.201 Unspecified atherosclerosis of native arteries of extremities, right leg; N31.9 Neuromuscular dysfunction of bladder, unspecified; Z79.01 Long term (current) use of anticoagulants; Z86.19 Personal history of other infectious and parasitic diseases; Z86.711 Personal history of pulmonary embolism; Z86.718 Personal history of other venous thrombosis and embolism; Z89.511 Acquired absence of right leg below knee; Z90.49 Acquired absence of other specified parts of digestive tract; Z88.0 Allergy status to penicillin; Z88.5 Allergy status to narcotic agent
CPT/HCPCS: 36415; 70450; 80048; 80053; 83735; 84100; 85025; 85520; 85610; 85730; 93306; 93880; 93970; 96365; 96366; G0378; J1644; Q0162

== ENCOUNTER 2018-11-21 19:57 | Emergency (ER) | payer MEDICARE, MEDICAID ==
[~2018-11-21] VITALS: Ht 170.2 cm; Wt 80.7 kg
[~2018-11-21 19:57] MED LIST changes: +APIX5TAB PO
[2018-11-21 20:00] VITALS: BP 145/86
--- NOTE | 2018-11-21 20:29 | NUR ---
FIRST CONTACT WITH PT. PT HERE STATING THAT HE WAS RELEASED FROM HOSPITAL YESTERDAY AFTER BEING ADMITTED FOR BLOOD CLOTS, STATES HAVING INCREASED PAIN. PT'S APX4. RESPS EVEN AND UNLABORED. PA AT BEDSIDE TO ASSESS AT THIS TIME.
[2018-11-21] MEDS ORDERED: APIXABAN 5 MG TABLET PO ONE (20:30)
[2018-11-21] MEDS ORDERED: OXYcodone/APAP 5/325MG TABLET PO ONE (20:30)
[2018-11-21] MEDS ORDERED: OXYcodone/APAP 5/325MG TABLET ONE (20:35)
[2018-11-21] MEDS ORDERED: APIXABAN 5 MG TABLET ONE (20:35)
--- NOTE | 2018-11-21 20:38 | NUR ---
PT MEDICATED PER EMAR. PT TOLERATED WELL. PT'S AOX4. RESPS EVEN AND UNLABORED.
--- NOTE | 2018-11-21 21:02 | NUR ---
PT GIVEN DC INSTRUCTIONS. PT'S AOX4. RESPS EVEN AND UNLABORED. PT AMB TO DC WITH STEADY GAIT. NO ACUTE DISTRESS AT DC. PT GIVEN 3 TAXI VOUCHERS PER PA ORDER FOR GOING TO PHARMACY TOMORROW.
== END 2018-11-21 21:03 | disposition home or self-care (01) ==
LOC: ED 20:57
DX: I82.402 Acute embolism and thrombosis of unspecified deep veins of left lower extremity (principal); I10 Essential (primary) hypertension; I77.9 Disorder of arteries and arterioles, unspecified; F31.9 Bipolar disorder, unspecified; Z91.19 Patient's noncompliance with other medical treatment and regimen; Z72.9 Problem related to lifestyle, unspecified; Z75.9 Unspecified problem related to medical facilities and other health care; Z91.14 Patient's other noncompliance with medication regimen; Z63.8 Other specified problems related to primary support group; Z90.89 Acquired absence of other organs
CPT/HCPCS: 99283

== ENCOUNTER 2019-01-27 18:07 | Emergency (ER) | payer MEDICARE, MEDICAID ==
[~2019-01-27] VITALS: Ht 170.2 cm; Wt 82.0 kg
[~2019-01-27 18:07] MED LIST changes: +MIRT-34 PO; -MIRT15TA4 PO
[2019-01-27 18:14] VITALS: BP 106/71
[2019-01-27] MEDS ORDERED: KETOROLAC 30 MG/1 ML IVPush ONE (18:30)
[2019-01-27] MEDS ORDERED: SODIUM CHLORIDE FLUSH 10ML SYR IVF ONE (18:30)
[2019-01-27 18:51] LABS: BASOPHILS # (AUTO) 0.02 x10^3/uL (0-0.1); BASOPHILS % (AUTO) 0 % (0-1); EOSINOPHILS # (AUTO) 0.21 x10^3/uL (0-0.4); EOSINOPHILS % (AUTO) 2 % (1-7); LYMPHOCYTES # (AUTO) 2.46 x10^3/uL (1-3.4); LYMPHOCYTES % (AUTO) 29 % (22-44); MD NO; MEAN CORPUSCULAR HEMOGLOBIN 32.4 pg (27.5-34.5); MEAN CORPUSCULAR HGB CONC 33.6 g/dL (33.2-36.2); MEAN CORPUSCULAR VOLUME 96.4 fL (81-97); MEAN PLATELET VOLUME 8.3 fL (7.4-10.4); MONOCYTES # (AUTO) 0.28 x10^3/uL (0.2-0.8); MONOCYTES % (AUTO) 3 % (2-9); NEUTROPHILS # (AUTO) 5.64 x10^3/uL (1.8-6.8); NEUTROPHILS % (AUTO) 66 % (42-75); PLATELET COUNT 260 x10^3/uL (130-400); RED BLOOD COUNT 4.43 x10^6/uL (4.38-5.82); RED CELL DISTRIBUTION WIDTH 14.5 % (9.4-14.8)
[2019-01-27 18:54] LABS: ALBUMIN 3.7 g/dL (3.4-5.0); ANION GAP 10 mmol/L (5-15); CALCIUM 9.4 mg/dL (8.5-10.1); CHLORIDE 111 mmol/L (98-107); CREATININE 0.91 mg/dL (0.7-1.3)
--- NOTE | 2019-01-27 18:56 | NUR ---
REPORT RECIEVED FROM STEVE DOMÍNGUEZ
[2019-01-27 19:01] LABS: TROPONIN I < 0.015 ng/mL (0.000-0.045)
== END 2019-01-27 20:00 | disposition home or self-care (01) ==
LOC: ED 19:53
DX: R07.2 Precordial pain (principal); R07.1 Chest pain on breathing; I10 Essential (primary) hypertension; F31.9 Bipolar disorder, unspecified; Z72.9 Problem related to lifestyle, unspecified; Z86.718 Personal history of other venous thrombosis and embolism; Z85.9 Personal history of malignant neoplasm, unspecified
CPT/HCPCS: 36415; 71045; 80048; 82040; 84484; 85025; 85379; 93005; 99284

== ENCOUNTER 2019-05-31 19:53 | Emergency (ER) | payer MEDICARE, MEDICAID ==
[~2019-05-31] VITALS: Ht 170.2 cm; Wt 84.2 kg
[2019-05-31 20:24] VITALS: BP 126/85
[2019-05-31 20:46] LABS: BASOPHILS # (AUTO) 0.16 x10^3/uL (0-0.1); BASOPHILS % (AUTO) 2 % (0-1); EOSINOPHILS # (AUTO) 0.37 x10^3/uL (0-0.4); EOSINOPHILS % (AUTO) 4 % (1-7); LYMPHOCYTES # (AUTO) 3.19 x10^3/uL (1-3.4); LYMPHOCYTES % (AUTO) 34 % (22-44); MD NO; MONOCYTES # (AUTO) 0.73 x10^3/uL (0.2-0.8); MONOCYTES % (AUTO) 8 % (2-9); NEUTROPHILS # (AUTO) 4.98 x10^3/uL (1.8-6.8); NEUTROPHILS % (AUTO) 53 % (42-75); PLATELET COUNT 300 x10^3/uL (130-400); RED BLOOD COUNT 4.69 x10^6/uL (4.38-5.82); RED CELL DISTRIBUTION WIDTH 14.5 % (9.4-14.8)
[2019-05-31 20:57] LABS: ALBUMIN 3.7 g/dL (3.4-5.0); ANION GAP 7 mmol/L (5-15); CALCIUM 9.1 mg/dL (8.5-10.1); CHLORIDE 110 mmol/L (98-107)
[2019-05-31 21:00] LABS: ALANINE AMINOTRANSFERASE 22 U/L (12-78); ALKALINE PHOSPHATASE 94 U/L (45-117); BILIRUBIN,TOTAL 0.5 mg/dL (0.2-1.0); CREATININE 1.03 mg/dL (0.7-1.3); TOTAL PROTEIN 7.9 g/dL (6.4-8.2)
[2019-05-31 22:05] LABS: CULTURE INDICATED? YES; MICROSCOPIC INDICATED
[2019-05-31] MEDS ORDERED: ACETAMINOPHEN 325 MG TABLET PO ONE (22:30)
[2019-05-31] MEDS ORDERED: ACETAMINOPHEN 325 MG TABLET ONE (22:59)
== END 2019-05-31 23:17 | disposition home or self-care (01) ==
LOC: ED 22:10
DX: N30.01 Acute cystitis with hematuria (principal); F17.200 Nicotine dependence, unspecified, uncomplicated; Z72.9 Problem related to lifestyle, unspecified; I10 Essential (primary) hypertension; G89.29 Other chronic pain; Z90.89 Acquired absence of other organs; Z86.718 Personal history of other venous thrombosis and embolism
CPT/HCPCS: 36415; 80053; 81001; 85025; 87086; 99283

== ENCOUNTER 2019-08-24 15:59 | Emergency (ER) | payer MEDICARE, MEDICAID ==
[~2019-08-24] VITALS: Ht 172.7 cm; Wt 84.5 kg
[~2019-08-24 15:59] MED LIST changes: +MECL-101 PO; -MECL25TA4 PO; -TRAZ-137 PO; +TRAZ-175 PO
[2019-08-24 16:18] VITALS: BP 148/96
--- NOTE | 2019-08-24 16:20 | NUR ---
THIS IS A 48 YO M W/ C/O RT [facility] PAIN 5/10 SINCE LAST NIGHT. HX OF ARTERIAL VASCULAR DISEASE AND PE. PT DENIES CP AND SOB. NO REDNESS OR SWELLING OBSERVED. VS STABLE. PT IS RESTING ON GURNEY W/ CALL LIGHT IN REACH. FAMILY AT BEDSIDE. AWAITING ED EVAL.
--- NOTE | 2019-08-24 17:09 | NUR ---
US IN ROOM.
--- NOTE | 2019-08-24 17:56 | NUR ---
PT RESTING ON [facility] AWAITING TEST RESULTS.
--- NOTE | 2019-08-24 18:05 | NUR ---
TESTS RESULTED. PT IS UP FOR RECHECK AT THIS TIME.
--- NOTE | 2019-08-24 18:25 | NUR ---
Patient given discharge instructions and they have confirmed that they understand the instructions. Patient ambulatory with steady gait.
== END 2019-08-24 18:26 | disposition home or self-care (01) ==
LOC: ED 16:43
DX: M79.662 Pain in left lower leg (principal); I10 Essential (primary) hypertension; Z90.89 Acquired absence of other organs; Z86.718 Personal history of other venous thrombosis and embolism; Z88.8 Allergy status to other drugs, medicaments and biological substances; Z88.0 Allergy status to penicillin; Z91.013 Allergy to seafood
CPT/HCPCS: 99284

== ENCOUNTER 2019-09-04 20:48 | Emergency (ER) | payer MEDICARE, MEDICAID ==
[~2019-09-04] VITALS: Ht 172.7 cm; Wt 85.4 kg
--- NOTE | 2019-09-04 22:48 | NUR ---
PT PLACED ON ISOLATION PRECAUTIONS FOR MRSA.
--- NOTE | 2019-09-04 22:50 | NUR ---
PT REPORTS DIZZINESS STARTING YESTERDAY, DENIES MCCURDY. REPORTS INCREASED DIZZINESS WHEN TURNING HEAD SIDE TO SIDE. DENIES ANY OTHER C/O AT THIS TIME. PT CONNECTED TO MONITORING, CALL LIGHT WITHIN REACH, ALL SAFETY MEASURES IN PLACE.
[2019-09-04] MEDS ORDERED: MECLIZINE CHEWABLE 25 MG TAB PO ONE (23:30)
--- NOTE | 2019-09-04 23:45 | NUR ---
PT BACK FROM IMAGING.
[2019-09-04] MEDS ORDERED: MECLIZINE CHEWABLE 25 MG TAB ONE (23:55)
--- NOTE | 2019-09-05 00:20 | NUR ---
BREAK RN: PT WATCHING TV IN ROOM. NO ACUTE DISTRESS NOTED. VS STABLE. CALL LIGHT IN PLACE. WILL CONTINUE TO MONITOR WHILE PRIMARY RN IS ON BREAK.
[2019-09-05 00:33] LABS: ALBUMIN 3.7 g/dL (3.4-5.0); ANION GAP 6 mmol/L (5-15); CALCIUM 9.4 mg/dL (8.5-10.1); CHLORIDE 109 mmol/L (98-107); CREATININE 0.95 mg/dL (0.7-1.3)
[2019-09-05 00:35] VITALS: BP 126/86
[2019-09-05 00:55] LABS: MEAN CORPUSCULAR HEMOGLOBIN 32.2 pg (27.5-34.5); MEAN CORPUSCULAR HGB CONC 34.1 g/dL (33.2-36.2); MEAN CORPUSCULAR VOLUME 94.6 fL (81-97); MEAN PLATELET VOLUME 8.1 fL (7.4-10.4); PLATELET COUNT 254 x10^3/uL (130-400); RED BLOOD COUNT 5.02 x10^6/uL (4.38-5.82); RED CELL DISTRIBUTION WIDTH 14.6 % (9.4-14.8)
[2019-09-05 00:56] LABS: MD YES
[2019-09-05 01:00] LABS: BASOS#(MANUAL) 0.09 x10^3/uL (0-0.1); BASOS% (MANUAL) 1 % (0-1); EOS#(MANUAL) 0.19 x10^3/uL (0.0-0.4); EOS% (MANUAL) 2 % (1-7); LYMPH#(MANUAL) 2.35 x10^3/uL (1-3.4); LYMPHS% (MANUAL) 25 % (22-44); MONOS#(MANUAL) 0.28 x10^3/uL (0.3-2.7); MONOS% (MANUAL) 3 % (2-9); REACTIVE LYMPHS # (MANUAL) 0.85 x10^3/uL (0-0); REACTIVE LYMPHS % (MANUAL) 9 % (0-0); SEG#(MANUAL) 5.64 x10^3/uL (1.8-6.8); SEGS% (MANUAL) 60 % (42-75)
[2019-09-05 01:01] LABS: OVALOCYTES 1+
[2019-09-05 01:02] LABS: <PLATELET ESTIMATE> ADEQUATE
[2019-09-05 01:03] LABS: <PLT MORPHOLOGY> NORMAL PLT MORPH
== END 2019-09-05 01:43 | disposition home or self-care (01) ==
LOC: ED 23:55
DX: H81.399 Other peripheral vertigo, unspecified ear (principal); I10 Essential (primary) hypertension; F17.200 Nicotine dependence, unspecified, uncomplicated; Z86.718 Personal history of other venous thrombosis and embolism
CPT/HCPCS: 36415; 70450; 80048; 82040; 85025; 93005; 99285

== ENCOUNTER 2020-02-04 15:47 | Emergency (ER) | payer MEDICARE, MEDICAID ==
[~2020-02-04] VITALS: Ht 185.4 cm; Wt 85.6 kg
[~2020-02-04 15:47] MED LIST changes: -ZOLP12.54 PO; +ZOLP12.56 PO
[2020-02-04 15:52] VITALS: BP 138/92
--- NOTE | 2020-02-04 16:32 | NUR ---
PT TO ROOM FROM LOBBY AT THIS TIME.
[2020-02-04] MEDS ORDERED: OXYcodone/APAP 5/325MG TABLET PO ONE (17:00)
[2020-02-04 17:05] LABS: BASOPHILS # (AUTO) 0.03 x10^3/uL (0-0.1); BASOPHILS % (AUTO) 0 % (0-1); EOSINOPHILS # (AUTO) 0.16 x10^3/uL (0-0.4); EOSINOPHILS % (AUTO) 2 % (1-7); LYMPHOCYTES # (AUTO) 2.13 x10^3/uL (1-3.4); LYMPHOCYTES % (AUTO) 26 % (22-44); MD NO; MEAN CORPUSCULAR HEMOGLOBIN 31.6 pg (27.5-34.5); MEAN CORPUSCULAR HGB CONC 33.8 g/dL (33.2-36.2); MEAN CORPUSCULAR VOLUME 93.7 fL (81-97); MEAN PLATELET VOLUME 8.1 fL (7.4-10.4); MONOCYTES % (AUTO) 1 % (2-9); NEUTROPHILS % (AUTO) 70 % (42-75); PLATELET COUNT 260 x10^3/uL (130-400); RED BLOOD COUNT 4.83 x10^6/uL (4.38-5.82)
[2020-02-04 17:13] LABS: ALANINE AMINOTRANSFERASE 29 U/L (12-78); ALBUMIN 3.8 g/dL (3.4-5.0); ANION GAP 9 mmol/L (5-15); CALCIUM 9.1 mg/dL (8.5-10.1); CHLORIDE 109 mmol/L (98-107); CREATININE 0.94 mg/dL (0.7-1.3)
[2020-02-04 17:15] LABS: ALKALINE PHOSPHATASE 79 U/L (45-117); BILIRUBIN,TOTAL 0.6 mg/dL (0.2-1.0); TOTAL PROTEIN 7.8 g/dL (6.4-8.2)
[2020-02-04] MEDS ORDERED: LIDOCAINE 2%,20 ML JEL.PF.APP MM ONE ×2 (17:33→18:00)
[2020-02-04] MEDS ORDERED: OXYcodone/APAP 5/325MG TABLET ONE (18:01)
[2020-02-04 18:33] LABS: MICROSCOPIC INDICATED
--- NOTE | 2020-02-04 18:53 | NUR ---
3 liters ns completed through bladder. urine is clear. no presence of blood or clots. md made aware.
[2020-02-04] MEDS ORDERED: CEFTRIAXONE 1,000 MG ONE (19:42)
[2020-02-04] MEDS ORDERED: CEFTRIAXONE 1,000 MG IM ONE (20:00)
== END 2020-02-04 19:57 | disposition home or self-care (01) ==
LOC: ED 18:32
DX: N30.01 Acute cystitis with hematuria (principal); F17.210 Nicotine dependence, cigarettes, uncomplicated; I10 Essential (primary) hypertension
CPT/HCPCS: 36415; 51700; 80053; 81001; 85025; 87077; 87086; 87186; 96372; 99284; 99406; J0696; 51702

== ENCOUNTER 2020-02-08 13:54 | Emergency (ER) | payer MEDICARE, MEDICAID ==
[~2020-02-08] VITALS: Ht 170.2 cm; Wt 84.7 kg
[2020-02-08 13:59] VITALS: BP 116/79
--- NOTE | 2020-02-08 14:32 | NUR ---
CENTRAL OFFICE MAINTAINER: PT TO ROOM FROM LOBBY
--- NOTE | 2020-02-08 14:47 | NUR ---
REMOVED 30ML FLUID FROM CATH BALLOON AND REMOVED FROM PT PER ORDER. PT TOLERATED. WELL.
--- NOTE | 2020-02-08 14:55 | NUR ---
PT WALKED OUT OF ED. WHEN CONFRONTED OUTSIDE THE PT TOLD ME EVERYTHING IS FINE, THAT HE COULD URINATE. I EXPLAINED THAT HE HADN'T BEEN DC'D AT THIS TIME AND HE REFUSED TO SIGN AMA PAPERWORK. PROVIDER NOTIFIED.
== END 2020-02-08 14:59 | disposition left against medical advice (07) ==
LOC: ED 14:53
DX: R33.8 Other retention of urine (principal)
CPT/HCPCS: 99281

== ENCOUNTER 2020-06-13 14:41 | Emergency (ER) | payer MEDICARE, MEDICAID ==
[~2020-06-13] VITALS: Ht 170.2 cm; Wt 88.0 kg
[~2020-06-13 14:41] MED LIST changes: -NICO-487 TD; +NICO-587 TD; -OXYC-432 PO; +OXYC1TAB18 PO
--- NOTE | 2020-06-13 15:57 | NUR ---
PT STATES ONLY QUICK IN AND OUT CATH FOR URINE NO NEED FOR FLUSHING, PT CATH SELF FOR URINE...
[2020-06-13 16:22] LABS: BASOPHILS % (AUTO) 1 % (0-1); EOSINOPHILS % (AUTO) 3 % (1-7); LYMPHOCYTES % (AUTO) 31 % (22-44); MEAN CORPUSCULAR HEMOGLOBIN 31.3 pg (27.5-34.5); MEAN CORPUSCULAR HGB CONC 34.4 g/dL (33.2-36.2); MONOCYTES % (AUTO) 7 % (2-9); NEUTROPHILS % (AUTO) 58 % (42-75); PLATELET COUNT 256 x10^3/uL (130-400); RED BLOOD COUNT 5.01 x10^6/uL (4.38-5.82); RED CELL DISTRIBUTION WIDTH 14.1 % (9.4-14.8)
[2020-06-13 16:28] LABS: MD NO
[2020-06-13 16:32] LABS: ANION GAP 5 mmol/L (5-15); CALCIUM 9.3 mg/dL (8.5-10.1); CHLORIDE 110 mmol/L (98-107); CREATININE 1.07 mg/dL (0.7-1.3)
--- NOTE | 2020-06-13 16:32 | NUR ---
FIRST QUICK DID NOT WORK TO MUCK BLOOD PUT IN A 18 FR CATH GOT URINE SENT TO LAB TOLD PT TO LEAVE IN UNTIL DISCHARGE...
--- NOTE | 2020-06-13 16:40 | NUR ---
PT RESTING AWAITING LABS NO NEW COMPLAINT...
[2020-06-13 16:42] LABS: MICROSCOPIC AUTO
[2020-06-13] MEDS ORDERED: CEFTRIAXONE 1,000 MG IM ONE (17:30)
[2020-06-13 17:34] VITALS: BP 135/99
== END 2020-06-13 18:00 | disposition home or self-care (01) ==
LOC: ED 15:15
DX: N30.01 Acute cystitis with hematuria (principal); I10 Essential (primary) hypertension; G89.29 Other chronic pain; I73.9 Peripheral vascular disease, unspecified; Z87.891 Personal history of nicotine dependence
CPT/HCPCS: 36415; 80048; 81001; 82040; 85025; 87086; 96372; 99283; J0696

== ENCOUNTER 2020-06-29 20:03 | Emergency (ER) | payer MEDICARE, MEDICAID ==
[~2020-06-29] VITALS: Ht 175.3 cm; Wt 85.0 kg
[~2020-06-29 20:03] MED LIST changes: -ESCI10TA PO; +ESCI10TA5 PO
[2020-06-29 20:27] LABS: BASOPHILS % (AUTO) 1 % (0-1); EOSINOPHILS % (AUTO) 3 % (1-7); LYMPHOCYTES % (AUTO) 30 % (22-44); MEAN CORPUSCULAR HEMOGLOBIN 31.8 pg (27.5-34.5); MEAN CORPUSCULAR HGB CONC 35.1 g/dL (33.2-36.2); MEAN PLATELET VOLUME 8.1 fL (7.4-10.4); MONOCYTES % (AUTO) 6 % (2-9); NEUTROPHILS % (AUTO) 61 % (42-75); PLATELET COUNT 236 x10^3/uL (130-400); RED BLOOD COUNT 4.53 x10^6/uL (4.38-5.82); RED CELL DISTRIBUTION WIDTH 13.8 % (9.4-14.8)
[2020-06-29 20:28] LABS: MD NO
[2020-06-29 20:36] LABS: ALBUMIN 3.5 g/dL (3.4-5.0); ANION GAP 5 mmol/L (5-15); CALCIUM 8.8 mg/dL (8.5-10.1); CHLORIDE 113 mmol/L (98-107); CREATININE 1.13 mg/dL (0.7-1.3)
[2020-06-29 20:40] LABS: TROPONIN I < 0.015 ng/mL (0.000-0.045)
[2020-06-29 20:48] VITALS: BP 141/96
[2020-06-29] MEDS ORDERED: HYDROmorphone 1 MG/ML, 1ML INJ ONE (20:49)
--- NOTE | 2020-06-29 20:52 | NUR ---
PT CAME IN CO CHEST PAIN HE DESCRIBES SHARP. PT WAS WATCHING TV. PAIN CAME ON SUDDENLY AT 1700. EKG COMPLETE. LABS DRAWN. PT MEDICATED PER AUG. CONNECTED TO ALL MONITORING EQUIPMENT
[2020-06-29] MEDS ORDERED: HYDROmorphone 1 MG/ML, 1ML INJ IM ONE (21:00)
== END 2020-06-29 21:41 | disposition home or self-care (01) ==
LOC: ED 21:38
DX: R07.89 Other chest pain (principal); R42 Dizziness and giddiness; R06.02 Shortness of breath; I10 Essential (primary) hypertension; Z72.9 Problem related to lifestyle, unspecified; Z90.89 Acquired absence of other organs; Z86.718 Personal history of other venous thrombosis and embolism
CPT/HCPCS: 36415; 71045; 80048; 82040; 84484; 85025; 93005; 96372; 99285; J1170

== ENCOUNTER 2020-07-05 20:25 | Emergency (ER) | payer MEDICARE, MEDICAID ==
[~2020-07-05] VITALS: Ht 175.3 cm; Wt 90.8 kg
--- NOTE | 2020-07-05 20:48 | NUR ---
PT. TO ED WITH C/O STERNAL CP SUDDEN ONSET WHILE WATCHING T.V. TONIGHT. DENIES RADIATION OF PAIN. STATES CONSTANT PAIN, WORSE WITH DEEP BREATHING. HX OF PE 2 YEARS AGO. LUNGS CLEAR ALL [place]. 99% O2 SAT ON RA. EKG DONE IN TRIAGE. CONTINUOUS PULSE OX, B/P, AND CARDIAC MONITORS PLACED. DR. PEREZ IN TO EVAL PT. AND DISCUSS POC. CALL LIGHT IN REACH. ALL SAFETY MEASURES OBSERVED.
[2020-07-05] MEDS ORDERED: ACETAMINOPHEN 500 MG TABLET ONE (20:55)
[2020-07-05] MEDS ORDERED: ASPIRIN 325 MG TABLET ONE (20:55)
[2020-07-05] MEDS ORDERED: ACETAMINOPHEN 325 MG TABLET PO ONE (21:00)
[2020-07-05] MEDS ORDERED: ASPIRIN 325 MG TABLET PO ONE (21:00)
[2020-07-05 21:17] LABS: BASOPHILS % (AUTO) 1 % (0-1); EOSINOPHILS % (AUTO) 3 % (1-7); LYMPHOCYTES % (AUTO) 27 % (22-44); MEAN CORPUSCULAR HEMOGLOBIN 31.9 pg (27.5-34.5); MEAN CORPUSCULAR HGB CONC 35.1 g/dL (33.2-36.2); MEAN PLATELET VOLUME 7.8 fL (7.4-10.4); MONOCYTES % (AUTO) 7 % (2-9); NEUTROPHILS % (AUTO) 63 % (42-75); PLATELET COUNT 305 x10^3/uL (130-400); RED BLOOD COUNT 4.91 x10^6/uL (4.38-5.82); RED CELL DISTRIBUTION WIDTH 14.2 % (9.4-14.8)
[2020-07-05 21:24] LABS: MD NO
[2020-07-05 21:30] LABS: ANION GAP 9 mmol/L (5-15); CALCIUM 9.3 mg/dL (8.5-10.1); CHLORIDE 108 mmol/L (98-107); CREATININE 1.25 mg/dL (0.7-1.3)
[2020-07-05 21:33] LABS: TROPONIN I < 0.015 ng/mL (0.000-0.045)
--- NOTE | 2020-07-05 21:45 | NUR ---
PT. SITTING IN CHAIR FOR COMFORT. ALL MONITORS REMAIN IN PLACE. VSS. D-DIMER PENDING.
--- NOTE | 2020-07-05 23:01 | NUR ---
US GUIDED IV PLACED; CALLED CT FOR SCAN.
--- NOTE | 2020-07-05 23:11 | NUR ---
PT STATES IV HURT AND HARD TO FLUSH WITH SALINE. RN NOTIFIED.
--- NOTE | 2020-07-06 00:01 | NUR ---
PT. TO CT AT THIS TIME.
[2020-07-06 00:46] VITALS: BP 138/98
== END 2020-07-06 00:47 | disposition left against medical advice (07) ==
LOC: ED 23:34
DX: R07.1 Chest pain on breathing (principal); R05 Cough; R00.0 Tachycardia, unspecified; I10 Essential (primary) hypertension; I73.9 Peripheral vascular disease, unspecified; Z90.89 Acquired absence of other organs; Z90.49 Acquired absence of other specified parts of digestive tract; Z87.891 Personal history of nicotine dependence; Z86.718 Personal history of other venous thrombosis and embolism
CPT/HCPCS: 36415; 71045; 80048; 82040; 84484; 85025; 85379; 93005; 99285

== ENCOUNTER 2020-09-02 16:43 | Emergency (ER) | payer MEDICARE, MEDICAID ==
[~2020-09-02] VITALS: Ht 175.3 cm; Wt 96.1 kg
[~2020-09-02 16:43] MED LIST changes: -ESCI10TA5 PO; +ESCI10TA97 PO; -OXYC-302 PO; +OXYC1TAB14 PO
--- NOTE | 2020-09-02 17:48 | NUR ---
YARN CARRIER: PT TO ROOM FROM [facility]TO[facility]
[2020-09-02 18:18] LABS: BASOPHILS % (AUTO) 1 % (0-1); EOSINOPHILS % (AUTO) 4 % (1-7); LYMPHOCYTES % (AUTO) 34 % (22-44); MEAN CORPUSCULAR HEMOGLOBIN 30.8 pg (27.5-34.5); MEAN CORPUSCULAR HGB CONC 34.5 g/dL (33.2-36.2); MEAN PLATELET VOLUME 7.2 fL (7.4-10.4); MONOCYTES % (AUTO) 8 % (2-9); NEUTROPHILS % (AUTO) 53 % (42-75); PLATELET COUNT 266 x10^3/uL (130-400); RED BLOOD COUNT 4.76 x10^6/uL (4.38-5.82); RED CELL DISTRIBUTION WIDTH 13.8 % (9.4-14.8)
[2020-09-02 18:19] LABS: MD NO
[2020-09-02 18:30] LABS: ALANINE AMINOTRANSFERASE 52 U/L (12-78); ALBUMIN 3.8 g/dL (3.4-5.0); ANION GAP 8 mmol/L (5-15); CALCIUM 8.9 mg/dL (8.5-10.1); CHLORIDE 110 mmol/L (98-107); CREATININE 1.18 mg/dL (0.7-1.3)
[2020-09-02] MEDS ORDERED: OMNIPAQUE 350 MG/ML, 100ML BOTTLE ONE (18:30)
[2020-09-02 18:34] LABS: ALKALINE PHOSPHATASE 94 U/L (45-117); BILIRUBIN,TOTAL 0.6 mg/dL (0.2-1.0); TROPONIN I < 0.015 ng/mL (0.000-0.045)
[2020-09-02] MEDS ORDERED: SODIUM CHLORIDE FLUSH 10ML SYR IVF ONE (19:00)
--- NOTE | 2020-09-02 19:00 | NUR ---
MULTIPLE ATTEMPTS FOR IV UNSUCCESSFUL. REPORT TO HERACLIO WILSON, TRANSFER OF CARE AT THIS TIME.
[2020-09-02] MEDS ORDERED: DEXTROSE 50%, 50ML SYRINGE ONE (19:41)
[2020-09-02] MEDS ORDERED: SODIUM BICARB 8.4%, 50ML SYRINGE ONE (19:41)
--- NOTE | 2020-09-02 19:53 | NUR ---
PT IN BED WITH NO SIGNS OR SYMPTOMS OF ACUTE DISTRESS NOTED RESPIRATIONS EVEN AND UNLABORED, US IV PLACED BY RN AND PT READY FOR CT. PT ON HAND HEEL SEAT FITTER WITH BED RAILS UP BILATERALLY AND CALL LIGHT WITHIN REACH
--- NOTE | 2020-09-02 20:11 | NUR ---
PT BACK FROM CT, TECH STATES THAT IV IS NO GOOD FOR CTA. PT IN BED WITH NO SIGNS OR SYMPTOMS OF ACUTE DISTRESS NOTED RESPIRATIONS EVEN AND UNLABORED.
--- NOTE | 2020-09-02 21:01 | NUR ---
pt back from ct, in bed with no signs or symptoms of acute distress noted respiraitons even and unlabored
[2020-09-02 21:56] VITALS: BP 105/80
== END 2020-09-02 22:25 | disposition home or self-care (01) ==
LOC: ED 21:05
DX: J06.9 Acute upper respiratory infection, unspecified (principal); R06.00 Dyspnea, unspecified; R94.31 Abnormal electrocardiogram [ECG] [EKG]; I10 Essential (primary) hypertension; Z90.89 Acquired absence of other organs; Z86.718 Personal history of other venous thrombosis and embolism; Z87.891 Personal history of nicotine dependence
CPT/HCPCS: 36415; 71275; 80053; 83880; 84484; 85025; 93005; 99285; Q9967

== ENCOUNTER 2020-09-13 21:12 | Inpatient (IN) | payer MEDICARE, MEDICAID ==
[~2020-09-13] VITALS: Ht 175.3 cm; Wt 93.8 kg
--- NOTE | 2020-09-13 21:41 | NUR ---
PATIENT PRESENTS TO ER VIA [facility] WITH C/O SUBSTERNAL CHEST PRESSURE "WITH A LITTLE PAIN" AND SOB. PATIENT OBJECTIVELY DOES NOT APPEAR TO BE SOB. 2L VIA NC APPLIED TO PATIENT FOR THIS COMPLAINT; ON RA PATIENT IS 95%. IV PLACED FOR POSSIBLY NEEDING NITRO SL OR CTA. LAB AT BEDSIDE FOR LAB DRAW. CALL MCCARTHY IN REACH. SAFETY MAINTAINED. VS REMAIN STABLE AT THIS TIME.
[2020-09-13 21:43] LABS: BASOPHILS % (AUTO) 1 % (0-1); EOSINOPHILS % (AUTO) 4 % (1-7); LYMPHOCYTES % (AUTO) 37 % (22-44); MEAN CORPUSCULAR HEMOGLOBIN 31.1 pg (27.5-34.5); MEAN CORPUSCULAR HGB CONC 34.9 g/dL (33.2-36.2); MEAN PLATELET VOLUME 7.4 fL (7.4-10.4); MONOCYTES % (AUTO) 9 % (2-9); NEUTROPHILS % (AUTO) 49 % (42-75); PLATELET COUNT 290 x10^3/uL (130-400); RED CELL DISTRIBUTION WIDTH 13.8 % (9.4-14.8)
[2020-09-13 21:44] LABS: MD NO
[2020-09-13 21:55] LABS: ALANINE AMINOTRANSFERASE 86 U/L (12-78); ALBUMIN 3.8 g/dL (3.4-5.0); ANION GAP 6 mmol/L (5-15); CALCIUM 9.5 mg/dL (8.5-10.1); CHLORIDE 106 mmol/L (98-107); CREATININE 1.29 mg/dL (0.7-1.3)
[2020-09-13 22:00] LABS: ALKALINE PHOSPHATASE 103 U/L (45-117); BILIRUBIN,TOTAL 0.4 mg/dL (0.2-1.0); TOTAL PROTEIN 7.9 g/dL (6.4-8.2); TROPONIN I < 0.015 ng/mL (0.000-0.045)
--- NOTE | 2020-09-13 22:00 | NUR ---
UNABLE TO COMPLETE MED REC DUE TO PATIENT NOT ABLE TO REMEMBER NAMES OR DOSES OF MEDICATIONS HE IS ON
--- NOTE | 2020-09-13 22:12 | NUR ---
PATIENT IN NAD SITTING UP IN BED. C/O 5/10 CHEST DISCOMFORT AND SOB. FLACC 0 WHILE RESTING IN BED. FLAT AFFECT. VS REMAIN STABLE. PATIENT IS REQUESTING MEDICATION FOR HIS PAIN. DR. ALONSO NOTIFIED OF PATIENT'S REQUEST. DR. ALONSO WILL BE IN TO BEDSIDE TO DISCUSS RESULTS WITH PATIENT AND COME UP WITH PLAN OF CARE WITH PATIENT SOON. PATIENT HAS NC STILL IN PLACE JUST FOR COMFORT. CALL MCCARTHY IN REACH
[2020-09-13] MEDS ORDERED: HYDROmorphone 2 MG/ML, 1ML IVPush ONE (22:30)
[2020-09-13] MEDS ORDERED: ONDANSETRON 2MG/ML, 2ML IVPush PRN (22:30)
[2020-09-13] MEDS ORDERED: ASPIRIN 81 MG TABLET CHEW PO ONE (22:30)
[2020-09-13] MEDS ORDERED: HYDROmorphone 1 MG/ML, 1ML INJ ONE (22:34)
--- NOTE | 2020-09-13 22:58 | NUR ---
REPORT GIVEN TO ELIAS WILSON
--- NOTE | 2020-09-13 23:05 | NUR ---
PATIENT REPORTS CHEST PRESSURE/PAIN IS DECREASING SINCE PAIN MEDICATION ADMINISTRATION. CALL MCCARTHY IN REACH. SAFETY MAINTAINED
[2020-09-13 23:43] VITALS: BP 135/99
[2020-09-14] VITALS (7 sets, daily range): BP systolic 104–133; BP diastolic 66–85
[2020-09-14] MEDS ORDERED: DOCUSATE 100 MG CAPSULE PO PRN
[2020-09-14] MEDS ORDERED: LIDODERM 5% PATCH TD PRN
[2020-09-14] MEDS ORDERED: ENALAPRILAT 1.25 MG/ML, 2ML IVPush PRN
[2020-09-14] MEDS ORDERED: ENOXAPARIN 40 MG/0.4 ML SQ SCH
[2020-09-14] MEDS ORDERED: MELATONIN 5 MG TABLET PO PRN
[2020-09-14] MEDS: TRAZODONE 100MG TABLET PO SCH ×2 (00:52→20:23)
[2020-09-14] MEDS: HYDROmorphone 2 MG/ML, 1ML IVPush PRN ×2 (01:40→06:15)
[2020-09-14 03:16] LABS: BASOPHILS % (AUTO) 1 % (0-1); EOSINOPHILS % (AUTO) 4 % (1-7); LYMPHOCYTES % (AUTO) 43 % (22-44); MEAN CORPUSCULAR HGB CONC 34.4 g/dL (33.2-36.2); MEAN PLATELET VOLUME 7.4 fL (7.4-10.4); MONOCYTES % (AUTO) 7 % (2-9); NEUTROPHILS % (AUTO) 45 % (42-75); PLATELET COUNT 270 x10^3/uL (130-400); RED BLOOD COUNT 4.56 x10^6/uL (4.38-5.82)
[2020-09-14 03:18] LABS: MD NO
[2020-09-14 03:27] LABS: ANION GAP 6 mmol/L (5-15); CALCIUM 9.3 mg/dL (8.5-10.1); CHLORIDE 108 mmol/L (98-107); CREATININE 1.45 mg/dL (0.7-1.3)
[2020-09-14 03:38] LABS: FREE T4 (FREE THYROXINE) 1.04 ng/dL (0.76-1.46); TROPONIN I < 0.015 ng/mL (0.000-0.045)
[2020-09-14] MEDS: ESCITALOPRAM 10MG TABLET PO SCH (08:10)
[2020-09-14] MEDS ORDERED: REGADENOSON 0.4 MG/5 ML SYRINGE ONE (08:22)
[2020-09-14] MEDS: SODIUM CHLORIDE 0.9% 1,000 ML IV SCH (08:30)
[2020-09-14] MEDS ORDERED: MAALOX/HYOSCYAMINE/LIDOCAINE 45 ML BTL PO ONE (08:30)
[2020-09-14 09:34] LABS: TROPONIN I < 0.015 ng/mL (0.000-0.045)
[2020-09-14] MEDS ORDERED: ONDANSETRON 2MG/ML, 2ML IVPush PRN (10:00)
[2020-09-14] MEDS: HEPARIN 5,000 UNITS/ML, 1ML SQ SCH ×2 (11:16→18:44)
[2020-09-14] MEDS: NITROGLYCERIN 0.4 MG BOTTLE (25 TABS) SL PRN ×2 (15:45→15:49)
[2020-09-14] MEDS ORDERED: MAALOX/HYOSCYAMINE/LIDOCAINE 45 ML BTL PO PRN (16:30)
[2020-09-14] MEDS: LACTOBACILLUS CHEW TABLET PO SCH ×2 (16:31→20:23)
[2020-09-15 01:35] VITALS: BP 101/73
[2020-09-15] MEDS: SODIUM CHLORIDE 0.9% 1,000 ML IV SCH (01:44)
[2020-09-15] MEDS: HEPARIN 5,000 UNITS/ML, 1ML SQ SCH ×2 (02:58→10:48)
[2020-09-15 05:08] LABS: ANION GAP 6 mmol/L (5-15); CALCIUM 8.4 mg/dL (8.5-10.1); CHLORIDE 109 mmol/L (98-107); CHOLESTEROL, TOTAL 181 mg/dL (140-239); CREATININE 1.23 mg/dL (0.7-1.3); TRIGLYCERIDES 136 mg/dL (50-200); VLDL CHOLESTEROL 27 mg/dL (0-25)
[2020-09-15 05:10] LABS: HDL CHOLESTEROL (DIRECT) 42 mg/dL (40-60)
[2020-09-15 05:20] LABS: CHOL/HDL RATIO 4.3; HDL CHOL % 23 % (26-37); LDL CHOLESTEROL,CALCULATED 112 mg/dL (54-169); LDL/HDL RATIO 2.7 (0.5-3.0)
[2020-09-15] MEDS ORDERED: OMEPRAZOLE 20 MG CAPSULE.DR PO SCH (06:00)
[2020-09-15 08:38] VITALS: BP 110/70
[2020-09-15] MEDS ORDERED: REGADENOSON 0.4 MG/5 ML SYRINGE ONE (08:50)
[2020-09-15] MEDS ORDERED: ACID1TAB7 PO (09:21)
[2020-09-15] MEDS ORDERED: OMEP-110 PO (09:21)
[2020-09-15] MEDS: ESCITALOPRAM 10MG TABLET PO SCH (10:47)
[2020-09-15] MEDS: LACTOBACILLUS CHEW TABLET PO SCH ×2 (10:47→17:49)
[2020-09-15] MEDS ORDERED: MAGNESIUM SULFATE PMX 2GM/50ML 50 ML IV ONE (14:00)
[2020-09-15 14:39] VITALS: BP 105/61
== END 2020-09-15 20:00 | disposition home or self-care (01) | DRG 313 ==
LOC: ED 21:38 → OBSVTOIN 22:53 → INTOOBSV 22:53 → EDIP 22:53 → 5SO 23:54
PROVIDERS: ADMIT Family Medicine; ATTEND Internal Medicine
DX: R07.9 Chest pain, unspecified (principal); N17.9 Acute kidney failure, unspecified; K21.9 Gastro-esophageal reflux disease without esophagitis; E66.9 Obesity, unspecified; F20.9 Schizophrenia, unspecified; J44.9 Chronic obstructive pulmonary disease, unspecified; Z86.718 Personal history of other venous thrombosis and embolism; Z87.891 Personal history of nicotine dependence; Z89.511 Acquired absence of right leg below knee; Z95.828 Presence of other vascular implants and grafts; Z88.0 Allergy status to penicillin; Z88.5 Allergy status to narcotic agent; Z88.8 Allergy status to other drugs, medicaments and biological substances; Z91.013 Allergy to seafood; Z68.30 Body mass index [BMI] 30.0-30.9, adult
CPT/HCPCS: 36415; 71045; 78452; 80048; 80053; 80061; 83690; 83735; 84100; 84439; 84443; 84484; 85025; 93005; 93017; 96374; G0378; J1170; J1644; J1650; J2785; A9502; J3475; J7030

== ENCOUNTER 2020-09-27 20:13 | Emergency (ER) | payer MEDICARE, MEDICAID ==
[~2020-09-27] VITALS: Ht 175.3 cm; Wt 95.9 kg
[~2020-09-27 20:13] MED LIST changes: +ACID1TAB7 PO; +[UNRECOGNIZED DRUG - CODE] PO; -[UNRECOGNIZED DRUG - CODE] PO
[2020-09-27] MEDS ORDERED: IBUPROFEN 600 MG TABLET ONE (20:55)
[2020-09-27] MEDS ORDERED: IBUPROFEN 200 MG TABLET PO ONE (21:00)
--- NOTE | 2020-09-27 21:09 | NUR ---
Pt back from radiology. Pt medicated per order. Ice to left knee. Pt A&O x4 with no complaints. Will continue to monitor.
[2020-09-27 22:23] VITALS: BP 128/67
--- NOTE | 2020-09-27 22:24 | NUR ---
Yong wrap to knee by EMT. Patient/Caregiver given discharge instructions and they have confirmed that they understand the instructions. Patient ambulatory with steady gait.
== END 2020-09-27 22:25 | disposition home or self-care (01) ==
LOC: ED 20:35
DX: G89.11 Acute pain due to trauma (principal); M25.462 Effusion, left knee; Z87.891 Personal history of nicotine dependence; W01.0XXA Fall on same level from slipping, tripping and stumbling without subsequent striking against object, initial encounter; Y93.89 Activity, other specified; Y92.009 Unspecified place in unspecified non-institutional (private) residence as the place of occurrence of the external cause; Y99.8 Other external cause status
CPT/HCPCS: 99283

== ENCOUNTER 2020-09-30 19:12 | Emergency (ER) | payer MEDICAID, MEDICARE ==
[~2020-09-30] VITALS: Ht 175.3 cm; Wt 95.0 kg
[~2020-09-30 19:12] MED LIST changes: +[UNRECOGNIZED DRUG - CODE] PO; -[UNRECOGNIZED DRUG - CODE] PO
[2020-09-30 19:18] VITALS: BP 144/89
--- NOTE | 2020-09-30 22:41 | NUR ---
BREAK RN: Patient given discharge instructions and they have confirmed that they understand the instructions. Patient ambulatory with steady gait.
== END 2020-09-30 22:42 | disposition home or self-care (01) ==
LOC: ED 21:54
DX: I80.12 Phlebitis and thrombophlebitis of left femoral vein (principal); M25.562 Pain in left knee; I10 Essential (primary) hypertension; Z85.9 Personal history of malignant neoplasm, unspecified; Z90.89 Acquired absence of other organs; Z87.891 Personal history of nicotine dependence
CPT/HCPCS: 99284

== ENCOUNTER 2020-10-14 18:14 | Emergency (ER) | payer MEDICARE ==
[~2020-10-14] VITALS: Ht 175.3 cm; Wt 99.0 kg
--- NOTE | 2020-10-14 18:21 | NUR ---
ERMD AT BEDSIDE FOR EVALUATION.
[2020-10-14] MEDS ORDERED: LIDOCAINE 2%,20 ML JEL.PF.APP MM ONE (18:23)
--- NOTE | 2020-10-14 18:24 | NUR ---
PATIENT BIB EMS WITH CHIEF C/O PENILE BLEEDING. PER EMS PATIENT SELF CATHS AT HOME, AFTER TRYING TO SELF CATH TODAY HE STARTED BLEEDING FROM HIS PENIS AND BLEEDING WOULD NOT STOP, CATH WAS REMOVED. VSS EN ROUTE, NO OTHER INTERVENTIONS EN ROUTE. UPON ASSESSMENT, PATIENT'S SHORTS SOAKED IN BLOOD, REMOVED AND PATIENT CLEANED OFF, DRIED BLOOD CLOT AT THE TIP OF THE PENIS, BLEEDING CONTROLLED AT THIS TIME. PATIENT SELF CATH'S AT HOME DUE TO SPINAL SURGERY THAT LEFT PATIENT UNABLE TO VOID ON HIS OWN. BENTLEY, VSS, CALL LIGHT WITHIN REACH.
--- NOTE | 2020-10-14 18:30 | NUR ---
BLADDER SCANNER SHOWS 619 ML.
--- NOTE | 2020-10-14 18:38 | NUR ---
RECEIVED REPORT FROM STEVE BANERJEE. PT RESTING ON JIMENA. BENTLEY. VSS. RODRIGEZ CATH INSERTED. PT AIDA HUBBARD.
--- NOTE | 2020-10-14 18:56 | NUR ---
PER ERP DR. BRAND NO NEED FOR UA SAMPLE. PT PLACED FOR RECHECK.
[2020-10-14 19:22] VITALS: BP 119/86
--- NOTE | 2020-10-14 19:23 | NUR ---
PT RESTING ON GURNEY. NADN. GARCIA.
== END 2020-10-14 19:47 | disposition home or self-care (01) ==
LOC: ED 19:40
DX: R33.9 Retention of urine, unspecified (principal); I10 Essential (primary) hypertension; Z90.89 Acquired absence of other organs; Z87.891 Personal history of nicotine dependence; Z86.718 Personal history of other venous thrombosis and embolism
CPT/HCPCS: 51702; 99284